=== PATIENT | male | born 1980 | race Two or more races ===

== ENCOUNTER 2023-10-03 10:39 | Emergency (ER) | payer SELFPAY ==
[2023-10-03] MEDS: Acetaminophen 500 MG Tab PO ONE (12:58)
[2023-10-03] MEDS: Ketorolac 30 MG/ML SDV IM ONE (13:02)
[2023-10-03] MEDS: Orphenadrine 60 MG/2 ML Inj IM ONE (13:05)
== END 2023-10-03 13:22 | disposition home or self-care (01) ==
LOC: DL.ED 10:39
DX: M25.512 Pain in left shoulder (principal); Z86.16 Personal history of COVID-19
CPT/HCPCS: 96372; 99283; A9270; J1885; J2360